=== PATIENT | female | born 1950 ===

== ENCOUNTER 2020-05-26 07:45 | Outpatient (CLI) | payer MEDICARE, OTHER ==
--- NOTE | 2020-05-26 09:09 | XRAY Report ---
PROCEDURE: Foot 3 View LT INDICATIONS: PAIN IN LEFT TOES TECHNIQUE: 3 views of the foot were acquired. COMPARISON: None FINDINGS: Bones: No fractures or dislocations. No suspicious bony lesions. Note is Soft tissues: No tibiotalar joint effusion. Achilles tendon appears normal. IMPRESSION: No acute trauma found. Plantar fascia and Achilles tendon insertion spurring as noted at the posterio r calcaneus. Reviewed by: Teto Cohen MD on 05/26/2020 9:07 AM PDT Approved by: Teto Cohen MD on 05/26/2020 9:07 AM PDT Station ID: [id number]
== END 2020-05-26 07:46 | disposition home or self-care (01) ==
LOC: DI.S 07:45
PROVIDERS: ATTEND Physician Assistant
DX: M77.32 Calcaneal spur, left foot (principal)